=== PATIENT | male | born 1985 | race Caucasian/White ===

== ENCOUNTER → 2016-12-18 | Outpatient (CLI) | payer OTHER ==
--- NOTE | 2016-12-18 16:02 | Diagnostic Imaging Report ---
Indication: Chest Pain Comparison: None A single view chest radiograph was obtained. Findings: Cardiomediastinal appearance is within normal limits for age. Pulmonary vascularity is appropriate. The diaphragmatic contour is smooth and costophrenic angles are sharp. No pleural effusions are identified. The bones are unremarkable. Impression: No acute findings
--- NOTE | 2016-12-19 10:58 | Diagnostic Imaging Report ---
Indication: Chest pain. Comparison: None Findings: 4 views of the left chest wall was obtained for evaluation of the ribs. Bony mineralization appears normal. There is no acute fracture identified. There is no soft tissue swelling demonstrated. The lung is essentially clear. The costophrenic angle is sharp. Other osseous structures visualized are unremarkable. Impression: Negative unilateral rib series
== END | disposition home or self-care (01) ==
LOC: RAD 15:10
DX: R07.81 Pleurodynia (principal); R07.9 Chest pain, unspecified
CPT/HCPCS: 71010